=== PATIENT | female | born 1950 | race Caucasian/White ===

== ENCOUNTER 2019-08-15 09:41 | Emergency (ER) | payer OTHER, MEDICARE, SELFPAY ==
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
[2019-08-15 09:45] VITALS: BP 157/104; PULSE 60; RESP 16; TEMP 36.6; O2SAT 100
--- NOTE | 2019-08-15 09:52 | ECG_ITS ---
Measurements Intervals [place] Rate: 87 P: 41 UT: 149 QRS: 30 QRSD: 90 T: 63 QT: 346 QTc: 416 Interpretive Statements SINUS RHYTHM BASELINE ARTIFACT- I, II, AVR, V4-V5 BORDERLINE ECG Electronically Signed On 08-15-2019 9:56:54 MICROELECTRONICS TECHNICIAN by Mahad Escobar D.O.
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
[2019-08-15 11:19] VITALS: BP 166/80; PULSE 65; RESP 18; O2SAT 97
== END 2019-08-15 11:21 | disposition home or self-care (01) ==
PROVIDERS: Emergency Provider Emergency Medicine; PCP Family Medicine
DX: S20.219A Contusion of unspecified front wall of thorax, initial encounter (principal); J43.9 Emphysema, unspecified; F17.200 Nicotine dependence, unspecified, uncomplicated; V49.40XA Driver injured in collision with unspecified motor vehicles in traffic accident, initial encounter; R94.31 Abnormal electrocardiogram [ECG] [EKG]
CPT/HCPCS: 71046; 71120; 93005; 99283

== ENCOUNTER 2020-08-19 09:21 | Outpatient (CLI) | payer MEDICARE, SELFPAY | END 2020-08-19 09:22 | disposition home or self-care (01) | LOC: ANHCOVIDVC 09:21 | PROVIDERS: PCP Family Medicine | DX: Z23 Encounter for immunization (principal) | CPT/HCPCS: 0001A; 91300 ==

== ENCOUNTER 2020-09-09 09:30 | Outpatient (CLI) | payer MEDICARE, SELFPAY | END 2020-09-09 09:31 | disposition home or self-care (01) | LOC: ANHCOVIDVC 09:30 | PROVIDERS: PCP Family Medicine | DX: Z23 Encounter for immunization (principal) | CPT/HCPCS: 0002A; 91300 ==

== ENCOUNTER 2023-05-08 08:34 | Outpatient (CLI) | payer MEDICARE, SELFPAY ==
--- NOTE | ~2023-05-08 | US_ITS ---
Limited Abdominal Sonogram: Real-time sonographic imaging of the right upper quadrant was performed. Clinical History: Hepatomegaly Findings: The liver appears normal with no evidence of mass lesion or bile duct dilatation. Liver me asures 15 cm in length. Main portal vein demonstrates normal direction of flow. The gallbladder is ab sent, compatible prior cholecystectomy. The common bile duct measures 3 mm. The visualized pancreas, aorta, and IVC are unremarkable. Impression: Unremarkable liver. Status post cholecystectomy. Reviewed, dictated and finalized at location . KETTLE TENDER Impression: Unremarkable liver. Status post cholecystectomy.
== END 2023-05-08 08:35 | disposition home or self-care (01) ==
PROVIDERS: PCP Family Medicine; Visit Provider Physician Assistant
DX: R16.0 Hepatomegaly, not elsewhere classified (principal); Z90.49 Acquired absence of other specified parts of digestive tract
CPT/HCPCS: 76705

== ENCOUNTER 2025-04-25 10:37 | Outpatient (CLI) | payer MEDICARE, SELFPAY ==
[2025-04-25 11:36] LABS: Hematocrit 47.7 % (37.0-47.0); Hemoglobin 15.0 g/dL (12.0-15.0); Mean Corpuscular HGB Conc 31.4 g/dl (32-36); Mean Corpuscular Hemoglobin 30.5 pg (26-34); Mean Corpuscular Volume 97.0 fl (80-100); Platelet Count Result 409 k/mm3 (150-375); Red Blood Count 4.92 M/mm3 (4.2-5.4); White Blood Count 6.9 K/mm3 (4.5-10.0)
[2025-04-25 11:58] LABS: Alanine Aminotransferase 18 U/L (6-35); Albumin Level 4.4 g/dL (3.5-5.1); Alkaline Phosphatase 90 U/L (38-126); Anion Gap 6 mmol/L (4-12); Aspartate Amino Transferase 36 U/L (14-36); Bilirubin,Total 0.7 mg/dL (0.2-1.3); Blood Urea Nitrogen 21 mg/dL (7-17); Calcium 9.0 mg/dL (8.4-10.2); Carbon Dioxide 31 mmol/L (22-30); Chloride 101 mmol/L (98-107); Estimated Glomerular Filt Rate > 60; Glucose 95 mg/dL (65-110); Potassium 4.3 mmol/L (3.4-5.0); Sodium 138 mmol/L (137-145); Total Protein 7.8 g/dL (6.3-8.2)
[2025-04-25 12:09] LABS: Hemoglobin A1C 5.9 % (<5.7)
[2025-04-25 12:34] LABS: Thyroid Stimulating Hormone 0.782 uIU/mL (0.465-4.680)
[2025-04-25 15:36] LABS: Add Urine Microscopic? YES; Appearance Urine Cloudy (Clear); Glucose Urine UA Negative (Negative); Leukocyte Esterase Ur Trace LEU/UL (Negative); Nitrate Urine Positive (Negative); Non Pathogenic Casts 0-2; Specific Grav Ur 1.023 (1.001-1.035)
== END 2025-04-25 10:38 | disposition home or self-care (01) ==
LOC: ANHLAB 10:40
PROVIDERS: PCP Family Medicine; Visit Provider Physician Assistant Medical
DX: F41.1 Generalized anxiety disorder (principal); E78.2 Mixed hyperlipidemia; R73.01 Impaired fasting glucose; F17.200 Nicotine dependence, unspecified, uncomplicated; K25.9 Gastric ulcer, unspecified as acute or chronic, without hemorrhage or perforation
CPT/HCPCS: 36415; 80053; 81001; 83036; 84443; 85027